=== PATIENT | female | born 1995 | race Caucasian/White ===

== ENCOUNTER 2018-03-20 01:15 | Emergency (ER) | payer MEDICAID, OTHER ==
[2018-03-20 01:58] LABS: BASOPHILS % (AUTO) 1 % (0-3); EOSINOPHILS % (AUTO) 1 % (0-9); HEMATOCRIT 40 % (35-47); HEMOGLOBIN 13.5 gm/dl (12.0-15.5); LYMPHOCYTES % (AUTO) 19.5 % (10-50); MEAN CORPUSCULAR HEMOGLOBIN 30.2 pg (27.0-32.0); MEAN CORPUSCULAR HGB CONC 34.1 gm/dl (32.0-36.0); MEAN CORPUSCULAR VOLUME 89 fL (81-99); MONOCYTES % (AUTO) 6.1 % (0-12); NEUTROPHILS % (AUTO) 72.4 % (37-80)
[2018-03-20 02:05] VITALS: RESP 20; O2SAT 99
[2018-03-20 02:11] LABS: APPEARANCE,URINE Slightly Cloudy; BILIRUBIN,URINE NEGATIVE (NEGATIVE); COLOR,URINE Yellow; GLUCOSE, URINE (UA) NEGATIVE (NEGATIVE); KETONES,URINE NEGATIVE (NEGATIVE); LEUKOCYTE ESTERASE ,URINE TRACE (NEGATIVE); NITRATE,URINE POSITIVE (NEGATIVE); OCCULT BLOOD,URINE NEGATIVE (NEG-TRACE); UROBILINOGEN,URINE 0.2 (0.2-1.0 EU)
[2018-03-20 02:22] LABS: ALBUMIN 3.4 gm/dl (3.4-5.0); ALKALINE PHOSPHATASE 56 IU/L (46-116); ALT 14 IU/L (14-63); AST 7 IU/L (15-37); BILIRUBIN,TOTAL 0.2 mg/dl (0.2-1.0); BLOOD UREA NITROGEN 9 mg/dl (7-18); CALCIUM 8.7 mg/dl (8.5-10.1); CARBON DIOXIDE 27.5 mEq/L (21-32); CHLORIDE 104 mMol/L (98-107); CREATININE 0.77 mg/dl (0.60-1.00); GLUCOSE 98 mg/dl (74-106); POTASSIUM 4.1 mMol/L (3.5-5.1); SODIUM 138 mMol/L (136-145); TOTAL PROTEIN 6.8 gm/dl (6.4-8.2)
[2018-03-20 02:26] LABS: ALCOHOL < 0.003 gm/dl (0.000-0.08)
[2018-03-20 02:29] LABS: AMPHETAMINES NEGATIVE (NEGATIVE); BARBITUATES NEGATIVE (NEGATIVE); BENZODIAZEPINES NEGATIVE (NEGATIVE); CANNABINOL(THC) NEGATIVE (NEGATIVE); COCAINE(COC) NEGATIVE (NEGATIVE); METHAMPHETAMINES NEGATIVE (NEGATIVE); OPIATES(OP13) NEGATIVE (NEGATIVE); OXYCODONE(OXY) NEGATIVE (NEGATIVE); PROPOXYPHENE(PPX) NEGATIVE (NEGATIVE)
[2018-03-20 02:39] LABS: CRYSTALS NEGATIVE (0-3 AVE/HPF); RBC,URINE NEGATIVE (0-3AV/HPF)
[2018-03-20 02:40] LABS: BACTERIA 4+ (< 1+)
[2018-03-20] MEDS ORDERED: SULFAMETHOXAZOLE/TRIMETHOPRI 800/160 MG PO ONE (02:58)
[2018-03-20] MEDS ORDERED: SULFAMETHOXAZOLE/TRIMETHOPRI 800/160 MG ONE (03:00)
[2018-03-20 03:44] VITALS: BP 128/76; PULSE 78; TEMP 98.2
== END 2018-03-20 03:40 | disposition short-term general hospital (02) | DRG 880 ==
LOC: ED 01:15
DX: R45.851 Suicidal ideations (principal)
CPT/HCPCS: 36415; 80053; 80305; 80307; 81001; 84443; 84703; 85025; 87077; 87088; 87186; 99283; 99285; A9270-GY